=== PATIENT | female | born 1975 | race Caucasian/White ===

== ENCOUNTER → 2017-04-30 | Outpatient (CLI) | payer BC ==
[~2017-04-30] MED LIST: MTR600X PO; OXYC5TAB PO
== END | disposition home or self-care (01) ==
LOC: C.LABSPEC 18:00
PROVIDERS: ATTEND Physician Assistant
DX: N89.8 Other specified noninflammatory disorders of vagina (principal)

== ENCOUNTER → 2017-05-23 | Outpatient (CLI) | payer BC ==
[~2017-05-23] MED LIST changes: +OPTIRAY 320 IV PRN
--- NOTE | 2017-05-23 08:12 | DIAGNOSTIC IMAGING REPORT ---
CT PELVIS W/IV AND ORAL CONT (CT) CT DOSE: 403.25 mGy.cm CLINICAL HISTORY: Vaginal mass TECHNIQUE: The patient was scanned following the administration of dilute oral contrast. The patient was scanned following the intravenous administration of 92 cc of Optiray 320. A dose lowering technique was utilized adhering to the principles of ALARA. COMPARISON STUDY: None. FINDINGS: There is no pathologic bowel dilatation. The appendix appears normal. There is no evidence of acute appendicitis. The uterus is surgically absent. There is a 14 mm right ovarian follicle. No pathologic ovarian masses are visualized. No pathologically enlarged pelvic lymph nodes are visualized. No destructive skeletal lesions are visualized. The clinically reported vaginal mass is difficult to discern on CT scanning. IMPRESSION: 1. Surgically absent uterus 2. No pathologic adnexal masses 3. No evidence of pathologic adenopathy 4. The clinically reported vaginal mass is difficult to discern on CT scanning Electronically signed by: Wilmer Cui M.D. 05/23/2017 8:11 AM Dictated Date/Time: 05/23/2017 8:05 AM
== END | disposition home or self-care (01) ==
LOC: C.CTS 07:28
PROVIDERS: ATTEND Obstetrics & Gynecology Gynecologic Oncology
DX: R19.00 Intra-abdominal and pelvic swelling, mass and lump, unspecified site (principal); N89.8 Other specified noninflammatory disorders of vagina